=== PATIENT | female | born 1950 | race Caucasian/White ===

== ENCOUNTER 2017-08-16 09:55 | Inpatient (IN) ==
[2017-08-16 14:04] LABS: Basophils # 0.1 10*3/uL (0.0-0.2); Basophils % 0.8 % (0.0-0.8); Eosinophils # 0.1 10*3/uL (0.0-0.87); Eosinophils % 0.9 % (0.00-10.9); Hematocrit 39.4 VOL% (35.7-47.0); Hemoglobin 12.6 GM/DL (12.0-16.0); Immature Granulocytes % 0.7 %; Immature Granulocytes Absolute 0.09 #; Lymphocytes # 1.1 10*3/uL (1.4-4.0); Lymphocytes % 8.5 % (21.3-54.2); Mean Corpuscular Hemoglobin 28 PG (27-34); Mean Corpuscular Volume 86.4 FL (87-102); Mean Platelet Volume 11.4 FL (9.6-12.0); Monocytes # 1.3 10*3/uL (0.11-0.8); Monocytes % 9.6 % (1.7-12.7); Neutrophils # 10.6 10*3/uL (1.4-7.4); Neutrophils % 79.5 % (38.7-73.9); Platelet Count 337 T/CUMM (130-400); Red Blood Count 4.56 MC/CUMM (3.8-5.5); Red Cell Distribution Width 14.7 % (9.3-17.3); White Blood Count 13.4 T/CUMM (4-12)
[2017-08-16 15:41] LABS: INR 2.1
[2017-08-16 15:42] LABS: PT Patient Result 21.5 SECS
[2017-08-16 16:17] LABS: Albumin 3.7 G/DL (3.4-5.0); Bilirubin,Total 0.6 MG/DL (0.2-1.0); Calcium 8.8 MG/DL (8.5-10.1); Osmolality,Calculated 277.4 MOS/KG (273-304); Potassium 4.2 MMOL/L (3.5-5.1); Total Protein 6.9 G/DL (6.4-8.3)
[2017-08-16] MEDS ORDERED: ACETAMINOPHEN 325 MG TABLET PO PRN (16:20)
[2017-08-16] MEDS ORDERED: ONDANSETRON 4 MG/2 ML VIAL IV PRN (16:20)
[2017-08-16] MEDS ORDERED: CLINDAMYCIN INJ 50 ML IV ONE (17:49)
[2017-08-16] MEDS: SODIUM CHLORIDE 0.9% 1,000 ML IV SCH (18:00)
[2017-08-16] MEDS: CLINDAMYCIN INJ 600 MG in PREMIX 1 EACH IV SCH (18:00)
[2017-08-16] MEDS ORDERED: WARFARIN 7.5 MG TABLET PO SCH (22:00)
[2017-08-16] MEDS ORDERED: WARFARIN 2.5 MG TABLET PO SCH (22:00)
[2017-08-17] MEDS: CLINDAMYCIN INJ 600 MG in PREMIX 1 EACH IV SCH ×3 (01:03→17:08)
[2017-08-17 05:10] LABS: Basophils # 0.1 10*3/uL (0.0-0.2); Basophils % 1.2 % (0.0-0.8); Eosinophils # 0.2 10*3/uL (0.0-0.87); Eosinophils % 2.4 % (0.00-10.9); Hematocrit 36.1 VOL% (35.7-47.0); Immature Granulocytes % 0.8 %; Immature Granulocytes Absolute 0.08 #; Lymphocytes # 1.7 10*3/uL (1.4-4.0); Lymphocytes % 17.4 % (21.3-54.2); Mean Corpuscular HGB Conc 33.2 GM/DL (32-36); Mean Corpuscular Hemoglobin 28 PG (27-34); Mean Corpuscular Volume 84.1 FL (87-102); Monocytes % 10.5 % (1.7-12.7); Neutrophils # 6.7 10*3/uL (1.4-7.4); Neutrophils % 67.7 % (38.7-73.9); Platelet Count 341 T/CUMM (130-400); Red Blood Count 4.29 MC/CUMM (3.8-5.5); Red Cell Distribution Width 14.8 % (9.3-17.3); White Blood Count 9.9 T/CUMM (4-12)
[2017-08-17 05:47] LABS: Albumin 3.1 G/DL (3.4-5.0); Bilirubin,Total 0.8 MG/DL (0.2-1.0); Osmolality,Calculated 278.4 MOS/KG (273-304); Thyroid Stimulating Hormone 2.9 uIU/ml (0.358-3.74); Total Protein 6.8 G/DL (6.4-8.3)
[2017-08-17] MEDS ORDERED: LIDOCAINE 1%/EPI INJ 20 ML VIAL ONE (06:38)
[2017-08-17] MEDS ORDERED: BUPIVACAINE MPF 0.25% 30 ML VIAL ONE (06:38)
[2017-08-17] MEDS ORDERED: ONDANSETRON 4 MG/2 ML VIAL IV PRN (08:09)
[2017-08-17] MEDS: MORPHINE 10 MG/1 ML VIAL IV PRN ×2 (08:16→08:23)
[2017-08-17] MEDS: METOPROLOL SUCCINATE XL 50 MG TABLET PO SCH (09:33)
[2017-08-17] MEDS: ASPIRIN EC 81 MG TABLET PO SCH (09:33)
[2017-08-17] MEDS: PANTOPRAZOLE 40 MG TABLET PO SCH (09:33)
[2017-08-17] MEDS: CHOLECALCIFEROL 5,000 UNIT TABLET PO SCH (09:33)
[2017-08-17] MEDS: SODIUM CHLORIDE 0.9% 1,000 ML IV SCH (09:33)
[2017-08-17 10:52] LABS: INR 2.4
[2017-08-17 10:53] LABS: PT Patient Result 24.9 SECS
[2017-08-17] MEDS ORDERED: KETAMINE 500 MG/10 ML VIAL ONE (12:27)
[2017-08-17] MEDS ORDERED: PROPOFOL 200 MG/20 ML VIAL IV ONE (12:28)
[2017-08-17] MEDS ORDERED: SODIUM CHLORIDE 0.9% 250 ML IV ONE (12:29)
[2017-08-17] MEDS ORDERED: fentaNYL 100 MCG/2 ML VIAL ONE (12:29)
[2017-08-17] MEDS ORDERED: MIDAZOLAM 2 MG/2 ML VIAL ONE (12:29)
[2017-08-17] MEDS ORDERED: ONDANSETRON 4 MG/2 ML VIAL ONE (12:29)
[2017-08-17] MEDS ORDERED: SODIUM CHLORIDE 0.9% 500 ML IV ONE (13:33)
[2017-08-17] MEDS: WARFARIN 5 MG TABLET PO SCH (21:59)
[2017-08-18] MEDS: CLINDAMYCIN INJ 600 MG in PREMIX 1 EACH IV SCH ×2 (00:46→10:21)
[2017-08-18 04:56] LABS: Basophils # 0.1 10*3/uL (0.0-0.2); Basophils % 0.8 % (0.0-0.8); Eosinophils # 0.3 10*3/uL (0.0-0.87); Eosinophils % 2.7 % (0.00-10.9); Hematocrit 34.2 VOL% (35.7-47.0); Immature Granulocytes % 0.9 %; Immature Granulocytes Absolute 0.08 #; Lymphocytes # 1.5 10*3/uL (1.4-4.0); Mean Corpuscular HGB Conc 32.2 GM/DL (32-36); Mean Corpuscular Hemoglobin 27 PG (27-34); Mean Corpuscular Volume 85.3 FL (87-102); Mean Platelet Volume 11.3 FL (9.6-12.0); Monocytes % 11.1 % (1.7-12.7); Neutrophils # 6.3 10*3/uL (1.4-7.4); Neutrophils % 68.5 % (38.7-73.9); Platelet Count 300 T/CUMM (130-400); Red Blood Count 4.01 MC/CUMM (3.8-5.5); Red Cell Distribution Width 14.6 % (9.3-17.3); White Blood Count 9.2 T/CUMM (4-12)
[2017-08-18 05:22] LABS: Calcium 8.5 MG/DL (8.5-10.1); Osmolality,Calculated 274.7 MOS/KG (273-304); Potassium 4.1 MMOL/L (3.5-5.1)
[2017-08-18 05:29] LABS: INR 3.2; PT Patient Result 32.1 SECS
[2017-08-18] MEDS: ASPIRIN EC 81 MG TABLET PO SCH (10:23)
[2017-08-18] MEDS: CHOLECALCIFEROL 5,000 UNIT TABLET PO SCH (10:23)
[2017-08-18] MEDS: PANTOPRAZOLE 40 MG TABLET PO SCH (10:24)
[2017-08-18] MEDS: METOPROLOL SUCCINATE XL 50 MG TABLET PO SCH (10:24)
[2017-08-18] MEDS ORDERED: VANCOMYCIN INJ 1,500 MG in SODIUM CHLORIDE 0.9% 500 ML IV ONE (12:00)
[2017-08-18] MEDS: WARFARIN 5 MG TABLET PO SCH (18:38)
[2017-08-19] MEDS ORDERED: VANCOMYCIN INJ 1,500 MG in SODIUM CHLORIDE 0.9% 500 ML IV SCH
[2017-08-19 06:16] LABS: INR 2.6
[2017-08-19 06:17] LABS: PT Patient Result 26.2 SECS
[2017-08-19] MEDS ORDERED: LINEZOLID 600 MG TABLET PO SCH (09:00)
[2017-08-19] MEDS: PANTOPRAZOLE 40 MG TABLET PO SCH (10:59)
[2017-08-19] MEDS: ASPIRIN EC 81 MG TABLET PO SCH (11:00)
[2017-08-19] MEDS: CHOLECALCIFEROL 5,000 UNIT TABLET PO SCH (11:00)
[2017-08-19] MEDS: METOPROLOL SUCCINATE XL 50 MG TABLET PO SCH (11:00)
[2017-08-19 11:39] VITALS: BP 137/75
== END 2017-08-19 14:13 | disposition home health service (06) | DRG 603 ==
LOC: N.ED 09:55 → N.EDINP 09:55 → SUATTDRO 16:20 → N.EDINP 18:17 → N.TELES 18:30
PROVIDERS: ADMIT Hospitalist; ATTEND Internal Medicine Geriatric Medicine

== ENCOUNTER 2018-12-28 08:10 | Inpatient (IN) ==
[2018-12-28] MEDS ORDERED: MAGNESIUM SULF RIDER 4 GM in PREMIX 1 EACH IV PRN (09:02)
[2018-12-28] MEDS ORDERED: ONDANSETRON 4 MG/2 ML VIAL IV PRN (09:02)
[2018-12-28] MEDS ORDERED: ACETAMINOPHEN 325 MG TABLET PO PRN (09:02)
[2018-12-28] MEDS ORDERED: MAGNESIUM SULF RIDER 2 GM in PREMIX 1 EACH IV PRN (09:02)
[2018-12-28] MEDS ORDERED: DOCUSATE SODIUM 100 MG CAPSULE PO PRN (09:02)
[2018-12-28] MEDS ORDERED: ZALEPLON 5 MG CAPSULE PO PRN (09:02)
[2018-12-28] MEDS ORDERED: INFLUENZA VIRUS VACCINE 0.5 ML SYRINGE IM ONE (10:16)
[2018-12-28 10:28] LABS: Basophils # 0.1 10*3/uL (0.0-0.2); Basophils % 1.3 % (0.0-0.8); Eosinophils # 0.2 10*3/uL (0.0-0.87); Eosinophils % 1.8 % (0.00-10.9); Hematocrit 39.6 VOL% (35.7-47.0); Hemoglobin 12.3 GM/DL (12.0-16.0); Immature Granulocytes % 1.3 %; Immature Granulocytes Absolute 0.11 #; Lymphocytes # 1.5 10*3/uL (1.4-4.0); Lymphocytes % 17.5 % (21.3-54.2); Mean Corpuscular HGB Conc 31.1 GM/DL (32-36); Mean Corpuscular Volume 85.7 FL (87-102); Mean Platelet Volume 11.4 FL (9.6-12.0); Monocytes % 10.3 % (1.7-12.7); Neutrophils % 67.8 % (38.7-73.9); Platelet Count 330 T/CUMM (130-400); Red Blood Count 4.62 MC/CUMM (3.8-5.5); Red Cell Distribution Width 15.5 % (9.3-17.3); White Blood Count 8.5 T/CUMM (4-12)
[2018-12-28 10:45] LABS: PT Patient Result 10.7 SECS (9.6-12.2)
[2018-12-28 10:48] LABS: Albumin 3.5 G/DL (3.4-5.0); Bilirubin,Total 0.4 MG/DL (0.2-1.0); Osmolality,Calculated 276.5 MOS/KG (273-304); Total Protein 7.3 G/DL (6.4-8.3)
[2018-12-28] MEDS ORDERED: HEPARIN 5,000 UNIT/1 ML VIAL IV ONE (11:00)
[2018-12-28] MEDS ORDERED: HEPARIN DRIP 25,000 UNITS/500 ML PREMIX IV SCH (11:00)
[2018-12-28] MEDS: PANTOPRAZOLE 40 MG TABLET PO SCH (11:14)
[2018-12-28] MEDS ORDERED: MAGNESIUM HYDROXIDE SUSP 30 ML UDCUP PO PRN (15:43)
[2018-12-28] MEDS ORDERED: diphenhydrAMINE CAP 25 MG CAPSULE PO PRN (15:43)
[2018-12-28] MEDS: LINEZOLID 600 MG TABLET PO SCH (22:11)
[2018-12-29 05:21] LABS: Basophils # 0.1 10*3/uL (0.0-0.2); Basophils % 1.6 % (0.0-0.8); Eosinophils # 0.2 10*3/uL (0.0-0.87); Eosinophils % 2.5 % (0.00-10.9); Hematocrit 38.6 VOL% (35.7-47.0); Hemoglobin 12.1 GM/DL (12.0-16.0); Immature Granulocytes % 1.4 %; Immature Granulocytes Absolute 0.12 #; Lymphocytes # 2.1 10*3/uL (1.4-4.0); Lymphocytes % 24.7 % (21.3-54.2); Mean Corpuscular HGB Conc 31.3 GM/DL (32-36); Mean Corpuscular Volume 85.8 FL (87-102); Mean Platelet Volume 11.8 FL (9.6-12.0); Neutrophils % 58.8 % (38.7-73.9); Platelet Count 289 T/CUMM (130-400); Red Cell Distribution Width 15.4 % (9.3-17.3); White Blood Count 8.3 T/CUMM (4-12)
[2018-12-29 05:31] LABS: Calcium 9.5 MG/DL (8.5-10.1); Osmolality,Calculated 287.8 MOS/KG (273-304)
[2018-12-29] MEDS ORDERED: LIDOCAINE 1%/EPI INJ 20 ML VIAL ONE (07:32)
[2018-12-29] MEDS ORDERED: AMOXICILLIN 500 MG CAPSULE ONE (08:47)
[2018-12-29] MEDS: LINEZOLID 600 MG TABLET PO SCH (11:58)
[2018-12-29] MEDS: ASPIRIN EC 81 MG TABLET PO SCH (11:59)
[2018-12-29] MEDS: METOPROLOL SUCCINATE XL 25 MG TABLET PO SCH (11:59)
[2018-12-29] MEDS: CHOLECALCIFEROL 5,000 UNIT TABLET PO SCH (11:59)
[2018-12-29] MEDS: PANTOPRAZOLE 40 MG TABLET PO SCH (11:59)
[2018-12-29] MEDS ORDERED: INFLUENZA VIRUS VACCINE 0.5 ML SYRINGE IM ONE (12:25)
[2018-12-29] MEDS: HEPARIN DRIP 25,000 UNITS/500 ML PREMIX IV SCH (13:46)
[2018-12-29] MEDS ORDERED: HEPARIN 5,000 UNIT/1 ML VIAL IV ONE (17:07)
[2018-12-29] MEDS: WARFARIN 7.5 MG TABLET PO SCH (17:45)
[2018-12-30 04:35] LABS: Basophils # 0.1 10*3/uL (0.0-0.2); Basophils % 1.3 % (0.0-0.8); Eosinophils # 0.2 10*3/uL (0.0-0.87); Eosinophils % 2.2 % (0.00-10.9); Hemoglobin 12.3 GM/DL (12.0-16.0); Immature Granulocytes % 1.5 %; Immature Granulocytes Absolute 0.12 #; Lymphocytes % 24.6 % (21.3-54.2); Mean Corpuscular HGB Conc 30.8 GM/DL (32-36); Mean Corpuscular Volume 87.5 FL (87-102); Mean Platelet Volume 11.7 FL (9.6-12.0); Monocytes % 10.3 % (1.7-12.7); Neutrophils % 60.1 % (38.7-73.9); Platelet Count 302 T/CUMM (130-400); Red Blood Count 4.57 MC/CUMM (3.8-5.5); Red Cell Distribution Width 15.7 % (9.3-17.3); White Blood Count 8.3 T/CUMM (4-12)
[2018-12-30 04:48] LABS: PT Patient Result 10.8 SECS (9.6-12.2)
[2018-12-30 05:11] LABS: Osmolality,Calculated 280.4 MOS/KG (273-304)
[2018-12-30] MEDS ORDERED: WARFARIN 5 MG TABLET PO ONE (07:57)
[2018-12-30] MEDS: ASPIRIN EC 81 MG TABLET PO SCH (08:23)
[2018-12-30] MEDS: METOPROLOL SUCCINATE XL 25 MG TABLET PO SCH (08:23)
[2018-12-30] MEDS: PANTOPRAZOLE 40 MG TABLET PO SCH (08:23)
[2018-12-30] MEDS: CHOLECALCIFEROL 5,000 UNIT TABLET PO SCH (08:23)
[2018-12-30] MEDS: HEPARIN DRIP 25,000 UNITS/500 ML PREMIX IV SCH (08:24)
[2018-12-30] MEDS: WARFARIN 7.5 MG TABLET PO SCH (17:59)
[2018-12-31] MEDS: HEPARIN DRIP 25,000 UNITS/500 ML PREMIX IV SCH (02:21)
[2018-12-31 05:09] LABS: Basophils # 0.1 10*3/uL (0.0-0.2); Basophils % 1.5 % (0.0-0.8); Eosinophils # 0.2 10*3/uL (0.0-0.87); Eosinophils % 2.6 % (0.00-10.9); Hematocrit 38.1 VOL% (35.7-47.0); Hemoglobin 11.7 GM/DL (12.0-16.0); Immature Granulocytes % 1.5 %; Immature Granulocytes Absolute 0.11 #; Lymphocytes % 26.2 % (21.3-54.2); Mean Corpuscular HGB Conc 30.7 GM/DL (32-36); Mean Corpuscular Volume 85.8 FL (87-102); Monocytes % 10.3 % (1.7-12.7); Neutrophils % 57.9 % (38.7-73.9); Platelet Count 285 T/CUMM (130-400); Red Blood Count 4.44 MC/CUMM (3.8-5.5); Red Cell Distribution Width 15.6 % (9.3-17.3); White Blood Count 7.5 T/CUMM (4-12)
[2018-12-31 05:11] LABS: INR 1.2; PT Patient Result 13.4 SECS (9.6-12.2)
[2018-12-31 05:37] LABS: Calcium 9.4 MG/DL (8.5-10.1); Osmolality,Calculated 288.7 MOS/KG (273-304)
[2018-12-31] MEDS ORDERED: WARFARIN 5 MG TABLET PO ONE (07:38)
[2018-12-31] MEDS ORDERED: METHOCARBAMOL 750 MG TABLET PO PRN (07:41)
[2018-12-31] MEDS: ASPIRIN EC 81 MG TABLET PO SCH (09:28)
[2018-12-31] MEDS: CHOLECALCIFEROL 5,000 UNIT TABLET PO SCH (09:28)
[2018-12-31] MEDS: PANTOPRAZOLE 40 MG TABLET PO SCH (09:28)
[2018-12-31] MEDS: METOPROLOL SUCCINATE XL 25 MG TABLET PO SCH (09:28)
[2018-12-31] MEDS: WARFARIN 7.5 MG TABLET PO SCH (18:02)
[2019-01-01] MEDS: HEPARIN DRIP 25,000 UNITS/500 ML PREMIX IV SCH ×2 (02:21→14:01)
[2019-01-01 05:58] LABS: Basophils # 0.1 10*3/uL (0.0-0.2); Basophils % 1.2 % (0.0-0.8); Eosinophils # 0.2 10*3/uL (0.0-0.87); Eosinophils % 2.4 % (0.00-10.9); Hematocrit 39.4 VOL% (35.7-47.0); Hemoglobin 12.2 GM/DL (12.0-16.0); Immature Granulocytes % 1.5 %; Immature Granulocytes Absolute 0.11 #; Lymphocytes % 26.8 % (21.3-54.2); Mean Corpuscular Volume 85.7 FL (87-102); Monocytes % 10.7 % (1.7-12.7); Neutrophils % 57.4 % (38.7-73.9); Platelet Count 286 T/CUMM (130-400); Red Cell Distribution Width 15.6 % (9.3-17.3); White Blood Count 7.5 T/CUMM (4-12)
[2019-01-01 06:06] LABS: INR 1.8; PT Patient Result 19.2 SECS (9.6-12.2)
[2019-01-01 06:31] LABS: Osmolality,Calculated 279.4 MOS/KG (273-304)
[2019-01-01] MEDS: METOPROLOL SUCCINATE XL 25 MG TABLET PO SCH (10:09)
[2019-01-01] MEDS: PANTOPRAZOLE 40 MG TABLET PO SCH (10:09)
[2019-01-01] MEDS: CHOLECALCIFEROL 5,000 UNIT TABLET PO SCH (10:10)
[2019-01-01] MEDS: ASPIRIN EC 81 MG TABLET PO SCH (10:10)
[2019-01-01] MEDS ORDERED: WARFARIN 5 MG TABLET PO SCH (18:00)
[2019-01-02] MEDS: HEPARIN DRIP 25,000 UNITS/500 ML PREMIX IV SCH (05:10)
[2019-01-02 05:50] LABS: Basophils # 0.1 10*3/uL (0.0-0.2); Basophils % 1.3 % (0.0-0.8); Eosinophils # 0.2 10*3/uL (0.0-0.87); Eosinophils % 2.8 % (0.00-10.9); Hematocrit 37.3 VOL% (35.7-47.0); Hemoglobin 11.7 GM/DL (12.0-16.0); Immature Granulocytes % 1.7 %; Immature Granulocytes Absolute 0.12 #; Lymphocytes # 1.7 10*3/uL (1.4-4.0); Lymphocytes % 24.2 % (21.3-54.2); Mean Corpuscular HGB Conc 31.4 GM/DL (32-36); Mean Corpuscular Volume 86.1 FL (87-102); Mean Platelet Volume 11.9 FL (9.6-12.0); Platelet Count 273 T/CUMM (130-400); Red Blood Count 4.33 MC/CUMM (3.8-5.5); Red Cell Distribution Width 15.6 % (9.3-17.3); White Blood Count 7.2 T/CUMM (4-12)
[2019-01-02 06:04] LABS: Calcium 9.1 MG/DL (8.5-10.1); Osmolality,Calculated 282.3 MOS/KG (273-304)
[2019-01-02 07:29] LABS: PT Patient Result 22.1 SECS (9.6-12.2)
[2019-01-02] MEDS: METOPROLOL SUCCINATE XL 25 MG TABLET PO SCH (08:08)
[2019-01-02] MEDS: PANTOPRAZOLE 40 MG TABLET PO SCH (08:09)
[2019-01-02] MEDS: ASPIRIN EC 81 MG TABLET PO SCH (08:09)
[2019-01-02] MEDS: CHOLECALCIFEROL 5,000 UNIT TABLET PO SCH (08:09)
[2019-01-02 11:56] VITALS: BP 126/57
== END 2019-01-02 13:05 | disposition home or self-care (01) | DRG 599 ==
LOC: N.3E 09:42
PROVIDERS: ADMIT Internal Medicine Interventional Cardiology; ATTEND Internal Medicine Interventional Cardiology

== ENCOUNTER 2019-01-25 13:55 | Inpatient (IN) ==
[~2019-01-25 13:55] MED LIST: ACETAMINOPHEN 325 MG TABLET PO PRN; ALBUTEROL/IPRATROPIUM 3 ML NEB RESP TX PRN; ONDANSETRON 4 MG/2 ML VIAL IV PRN
[2019-01-29] MEDS ORDERED: INFLUENZA VIRUS VACCINE 0.5 ML SYRINGE IM ONE (10:31)
[2019-01-29 10:45] LABS: Basophils # 0.1 10*3/uL (0.0-0.2); Basophils % 1.5 % (0.0-0.8); Eosinophils # 0.1 10*3/uL (0.0-0.87); Eosinophils % 1.7 % (0.00-10.9); Hematocrit 37.9 VOL% (35.7-47.0); Hemoglobin 11.9 GM/DL (12.0-16.0); Immature Granulocytes % 0.6 %; Immature Granulocytes Absolute 0.05 #; Lymphocytes # 1.5 10*3/uL (1.4-4.0); Lymphocytes % 17.7 % (21.3-54.2); Mean Corpuscular HGB Conc 31.4 GM/DL (32-36); Mean Platelet Volume 11.7 FL (9.6-12.0); Monocytes % 7.9 % (1.7-12.7); Neutrophils % 70.6 % (38.7-73.9); Platelet Count 361 T/CUMM (130-400); Red Blood Count 4.46 MC/CUMM (3.8-5.5); Red Cell Distribution Width 15.4 % (9.3-17.3); White Blood Count 8.4 T/CUMM (4-12)
[2019-01-29 10:55] LABS: INR 1.8; PT Patient Result 19.7 SECS (9.6-12.2); Partial Thromboplastin Time 35.8 SECS (20.8-36.0)
[2019-01-29] MEDS: PANTOPRAZOLE 40 MG TABLET PO SCH ×4 (11:01→11:37)
[2019-01-29 11:04] LABS: Apearance,Urine CLEAR (Clear); Bacteria,Urine Occasional /HPF (Few); Bilirubin,Urine Negative (Negative); Blood, Urine Small mg/dL (Negative); Glucose,Urine (UA) Negative (Negative); Ketones,Urine Negative (Negative); Nitrite,Urine Negative (Negative); Protein,Urine Negative; Squamous Epithelial Cell,Urine Occasional /HPF (0-10); Urine Color Colorless (Yellow); Urine Specific Gravity 1.003 (1.001-1.035); Urine Urobilinogen < 2.0 EU/DL (0.2-1.0); WBC,Urine 1 /HPF (0-6)
[2019-01-29 11:06] LABS: Albumin 3.5 G/DL (3.4-5.0); Calcium 9.1 MG/DL (8.5-10.1); Osmolality,Calculated 279.7 MOS/KG (273-304); Total Protein 7.2 G/DL (6.4-8.3)
[2019-01-29] MEDS: HEPARIN DRIP 25,000 UNITS/500 ML PREMIX IV SCH (12:15)
[2019-01-29 18:17] LABS: INR 1.6; PT Patient Result 17.6 SECS (9.6-12.2)
[2019-01-29] MEDS: CALCIUM (CARBONATE)/VITAMIN D 500 MG-200 UNIT TABLET PO SCH (20:37)
[2019-01-30 06:03] LABS: INR 1.4; PT Patient Result 15.2 SECS (9.6-12.2)
[2019-01-30] MEDS: CHOLECALCIFEROL 5,000 UNIT TABLET PO SCH (09:34)
[2019-01-30] MEDS: METOPROLOL SUCCINATE XL 50 MG TABLET PO SCH (09:35)
[2019-01-30] MEDS: ASPIRIN EC 81 MG TABLET PO SCH (09:35)
[2019-01-30] MEDS: CALCIUM (CARBONATE)/VITAMIN D 500 MG-200 UNIT TABLET PO SCH ×2 (09:35→20:53)
[2019-01-30] MEDS: PANTOPRAZOLE 40 MG TABLET PO SCH (09:35)
[2019-01-30] MEDS: HEPARIN DRIP 25,000 UNITS/500 ML PREMIX IV SCH (12:07)
[2019-01-31 05:41] LABS: INR 1.2; PT Patient Result 12.6 SECS (9.6-12.2)
[2019-01-31] MEDS: HEPARIN DRIP 25,000 UNITS/500 ML PREMIX IV SCH ×2 (06:09→13:33)
[2019-01-31] MEDS: CHOLECALCIFEROL 5,000 UNIT TABLET PO SCH (08:09)
[2019-01-31] MEDS: ASPIRIN EC 81 MG TABLET PO SCH (08:09)
[2019-01-31] MEDS: PANTOPRAZOLE 40 MG TABLET PO SCH (08:09)
[2019-01-31] MEDS: CALCIUM (CARBONATE)/VITAMIN D 500 MG-200 UNIT TABLET PO SCH ×2 (08:09→21:10)
[2019-01-31] MEDS: METOPROLOL SUCCINATE XL 50 MG TABLET PO SCH (08:10)
[2019-02-01] MEDS: HEPARIN DRIP 25,000 UNITS/500 ML PREMIX IV SCH (02:39)
[2019-02-01 05:21] LABS: PT Patient Result 10.9 SECS (9.6-12.2)
[2019-02-01] MEDS ORDERED: HEPARIN DRIP 25,000 UNITS/500 ML PREMIX IV SCH (08:00)
[2019-02-01] MEDS: CHOLECALCIFEROL 5,000 UNIT TABLET PO SCH (08:41)
[2019-02-01] MEDS: PANTOPRAZOLE 40 MG TABLET PO SCH (08:42)
[2019-02-01] MEDS: ASPIRIN EC 81 MG TABLET PO SCH (08:42)
[2019-02-01] MEDS: CALCIUM (CARBONATE)/VITAMIN D 500 MG-200 UNIT TABLET PO SCH ×2 (08:42→20:39)
[2019-02-01] MEDS: METOPROLOL SUCCINATE XL 50 MG TABLET PO SCH (08:47)
[2019-02-01] MEDS: HEPARIN 5,000 UNIT/1 ML VIAL IV PRN (12:08)
[2019-02-02] MEDS ORDERED: FAMOTIDINE 20 MG TABLET PO ONE (06:00)
[2019-02-02] MEDS ORDERED: DIAZEPAM 5 MG TABLET PO ONE (06:00)
[2019-02-02 10:10] LABS: INR 0.9; PT Patient Result 10.3 SECS (9.6-12.2); Partial Thromboplastin Time 26.4 SECS (20.8-36.0)
[2019-02-02] MEDS: METOPROLOL SUCCINATE XL 50 MG TABLET PO SCH (10:10)
[2019-02-02] MEDS: LACTATED RINGERS 1,000 ML IV SCH ×2 (10:42→14:09)
[2019-02-02] MEDS ORDERED: ceFAZolin 1,000 MG VIAL ONE (12:14)
[2019-02-02] MEDS ORDERED: HYDROmorphone 2 MG/1 ML VIAL IV PRN (13:23)
[2019-02-02] MEDS ORDERED: HYDROmorphone 2 MG/1 ML VIAL ONE (14:01)
[2019-02-02] MEDS ORDERED: ONDANSETRON 4 MG/2 ML VIAL ONE (14:01)
[2019-02-02] MEDS ORDERED: ONDANSETRON 4 MG/2 ML VIAL IV PRN (14:02)
[2019-02-02] MEDS: HYDROmorphone 2 MG/1 ML VIAL IV PRN ×4 (14:05→14:20)
[2019-02-02] MEDS: PANTOPRAZOLE 40 MG TABLET PO SCH (15:32)
[2019-02-02] MEDS: KETOROLAC 15 MG/1 ML VIAL IV SCH ×2 (15:32→22:01)
[2019-02-02] MEDS: CALCIUM (CARBONATE)/VITAMIN D 500 MG-200 UNIT TABLET PO SCH ×2 (15:32→21:58)
[2019-02-02] MEDS: ASPIRIN EC 81 MG TABLET PO SCH (15:32)
[2019-02-02] MEDS: CHOLECALCIFEROL 5,000 UNIT TABLET PO SCH (15:32)
[2019-02-02] MEDS: WARFARIN 7.5 MG TABLET PO SCH (18:02)
[2019-02-02] MEDS: HEPARIN DRIP 25,000 UNITS/500 ML PREMIX IV SCH (18:12)
[2019-02-03] MEDS: KETOROLAC 15 MG/1 ML VIAL IV SCH ×4 (01:39→20:35)
[2019-02-03 02:45] LABS: Apearance,Urine Slightly Hazy (Clear); Bacteria,Urine Many /HPF (Few); Bilirubin,Urine Negative (Negative); Blood, Urine Large mg/dL (Negative); Glucose,Urine (UA) Negative (Negative); Hyaline Casts,Urine 7 /LPF (0-3); Ketones,Urine Negative (Negative); Mucus,Urine Many /LPF (Occasional); Nitrite,Urine Negative (Negative); Protein,Urine 30 MG/DL; RBC,Urine 73 /HPF (0-4); Squamous Epithelial Cell,Urine Occasional /HPF (0-10); Urine Color BLUE (Yellow); Urine Urobilinogen < 2.0 EU/DL (0.2-1.0); WBC,Urine 6 /HPF (0-6)
[2019-02-03 06:40] LABS: Basophils # 0.1 10*3/uL (0.0-0.2); Basophils % 0.5 % (0.0-0.8); Eosinophils % 0.1 % (0.00-10.9); Hematocrit 33.8 VOL% (35.7-47.0); Hemoglobin 10.4 GM/DL (12.0-16.0); Immature Granulocytes % 0.9 %; Immature Granulocytes Absolute 0.16 #; Lymphocytes # 1.5 10*3/uL (1.4-4.0); Lymphocytes % 8.5 % (21.3-54.2); Mean Corpuscular HGB Conc 30.8 GM/DL (32-36); Mean Corpuscular Volume 86.2 FL (87-102); Mean Platelet Volume 12.2 FL (9.6-12.0); Monocytes % 9.3 % (1.7-12.7); Neutrophils % 80.7 % (38.7-73.9); Platelet Count 369 T/CUMM (130-400); Red Blood Count 3.92 MC/CUMM (3.8-5.5); Red Cell Distribution Width 15.5 % (9.3-17.3); White Blood Count 18.1 T/CUMM (4-12)
[2019-02-03] MEDS ORDERED: CLINDAMYCIN INJ 900 MG in PREMIX 1 EACH IV ONE (07:23)
[2019-02-03] MEDS: METOPROLOL SUCCINATE XL 50 MG TABLET PO SCH (08:02)
[2019-02-03] MEDS ORDERED: LACTATED RINGERS 1,000 ML IV SCH (10:00)
[2019-02-03] MEDS ORDERED: LIDOCAINE 2% 5 ML VIAL ONE (10:27)
[2019-02-03] MEDS ORDERED: PROPOFOL 200 MG/20 ML VIAL IV ONE (10:27)
[2019-02-03] MEDS ORDERED: fentaNYL 100 MCG/2 ML VIAL ONE (10:27)
[2019-02-03] MEDS ORDERED: SEVOFLURANE 1 UNIT/15 MINUTE INH ONE (10:27)
[2019-02-03] MEDS ORDERED: PHENYLEPHRINE 1 MG/10 ML SYRINGE IV ONE (10:28)
[2019-02-03] MEDS ORDERED: ONDANSETRON 4 MG/2 ML VIAL ONE (10:28)
[2019-02-03] MEDS ORDERED: MIDAZOLAM 2 MG/2 ML VIAL ONE (10:28)
[2019-02-03] MEDS ORDERED: SUCCINYLCHOLINE 200 MG/10 ML VIAL ONE (10:28)
[2019-02-03] MEDS: CALCIUM (CARBONATE)/VITAMIN D 500 MG-200 UNIT TABLET PO SCH ×2 (14:40→20:35)
[2019-02-03] MEDS: CHOLECALCIFEROL 5,000 UNIT TABLET PO SCH (14:40)
[2019-02-03] MEDS: ASPIRIN EC 81 MG TABLET PO SCH (14:40)
[2019-02-03] MEDS: PANTOPRAZOLE 40 MG TABLET PO SCH (14:40)
[2019-02-03] MEDS: HEPARIN DRIP 25,000 UNITS/500 ML PREMIX IV SCH ×2 (16:23→23:27)
[2019-02-03] MEDS: WARFARIN 7.5 MG TABLET PO SCH (17:21)
[2019-02-03] MEDS ORDERED: HEPARIN 5,000 UNIT/1 ML VIAL IV ONE (23:00)
[2019-02-03] MEDS: HEPARIN 5,000 UNIT/1 ML VIAL IV PRN (23:26)
[2019-02-04] MEDS: KETOROLAC 15 MG/1 ML VIAL IV SCH ×4 (03:39→21:29)
[2019-02-04 03:54] LABS: Basophils # 0.1 10*3/uL (0.0-0.2); Basophils % 1.1 % (0.0-0.8); Eosinophils # 0.2 10*3/uL (0.0-0.87); Eosinophils % 1.9 % (0.00-10.9); Hematocrit 28.3 VOL% (35.7-47.0); Hemoglobin 8.6 GM/DL (12.0-16.0); Immature Granulocytes Absolute 0.22 #; Lymphocytes # 2.3 10*3/uL (1.4-4.0); Lymphocytes % 20.7 % (21.3-54.2); Mean Corpuscular HGB Conc 30.4 GM/DL (32-36); Mean Corpuscular Volume 85.8 FL (87-102); Mean Platelet Volume 12.5 FL (9.6-12.0); Monocytes % 10.4 % (1.7-12.7); Neutrophils % 63.9 % (38.7-73.9); Platelet Count 290 T/CUMM (130-400); Red Cell Distribution Width 15.2 % (9.3-17.3); White Blood Count 10.9 T/CUMM (4-12)
[2019-02-04 04:15] LABS: Calcium 8.4 MG/DL (8.5-10.1); Osmolality,Calculated 270.4 MOS/KG (273-304)
[2019-02-04] MEDS: METOPROLOL SUCCINATE XL 50 MG TABLET PO SCH (08:42)
[2019-02-04] MEDS: ASPIRIN EC 81 MG TABLET PO SCH (08:43)
[2019-02-04] MEDS: CHOLECALCIFEROL 5,000 UNIT TABLET PO SCH (08:43)
[2019-02-04] MEDS: PANTOPRAZOLE 40 MG TABLET PO SCH (08:43)
[2019-02-04] MEDS: CALCIUM (CARBONATE)/VITAMIN D 500 MG-200 UNIT TABLET PO SCH ×2 (08:43→21:29)
[2019-02-04] MEDS: WARFARIN 10 MG TABLET PO SCH (18:42)
[2019-02-04] MEDS: HEPARIN DRIP 25,000 UNITS/500 ML PREMIX IV SCH (18:42)
[2019-02-05] MEDS: HEPARIN DRIP 25,000 UNITS/500 ML PREMIX IV SCH ×2 (03:08→19:00)
[2019-02-05] MEDS: KETOROLAC 15 MG/1 ML VIAL IV SCH ×4 (05:07→22:07)
[2019-02-05 06:19] LABS: Basophils # 0.1 10*3/uL (0.0-0.2); Eosinophils # 0.3 10*3/uL (0.0-0.87); Eosinophils % 3.3 % (0.00-10.9); Hemoglobin 8.5 GM/DL (12.0-16.0); Immature Granulocytes % 3.5 %; Immature Granulocytes Absolute 0.32 #; Lymphocytes # 1.9 10*3/uL (1.4-4.0); Lymphocytes % 20.7 % (21.3-54.2); Mean Corpuscular HGB Conc 31.5 GM/DL (32-36); Mean Corpuscular Volume 85.4 FL (87-102); Mean Platelet Volume 12.3 FL (9.6-12.0); Monocytes % 10.2 % (1.7-12.7); Neutrophils % 61.3 % (38.7-73.9); Platelet Count 300 T/CUMM (130-400); Red Blood Count 3.16 MC/CUMM (3.8-5.5); Red Cell Distribution Width 15.1 % (9.3-17.3); White Blood Count 9.3 T/CUMM (4-12)
[2019-02-05 06:28] LABS: PT Patient Result 10.9 SECS (9.6-12.2)
[2019-02-05] MEDS: ASPIRIN EC 81 MG TABLET PO SCH (10:37)
[2019-02-05] MEDS: CHOLECALCIFEROL 5,000 UNIT TABLET PO SCH (10:37)
[2019-02-05] MEDS: PANTOPRAZOLE 40 MG TABLET PO SCH (10:38)
[2019-02-05] MEDS: CALCIUM (CARBONATE)/VITAMIN D 500 MG-200 UNIT TABLET PO SCH ×2 (10:38→22:07)
[2019-02-05] MEDS: METOPROLOL SUCCINATE XL 50 MG TABLET PO SCH (10:38)
[2019-02-05] MEDS: WARFARIN 10 MG TABLET PO SCH (18:20)
[2019-02-06] MEDS: KETOROLAC 15 MG/1 ML VIAL IV SCH ×4 (04:23→21:12)
[2019-02-06] MEDS: HEPARIN DRIP 25,000 UNITS/500 ML PREMIX IV SCH ×2 (07:29→18:04)
[2019-02-06 07:59] LABS: INR 1.2; PT Patient Result 12.7 SECS (9.6-12.2)
[2019-02-06] MEDS: METOPROLOL SUCCINATE XL 50 MG TABLET PO SCH (09:32)
[2019-02-06] MEDS: CHOLECALCIFEROL 5,000 UNIT TABLET PO SCH (09:32)
[2019-02-06] MEDS: ASPIRIN EC 81 MG TABLET PO SCH (09:32)
[2019-02-06] MEDS: CALCIUM (CARBONATE)/VITAMIN D 500 MG-200 UNIT TABLET PO SCH ×2 (09:32→21:12)
[2019-02-06] MEDS: PANTOPRAZOLE 40 MG TABLET PO SCH (09:32)
[2019-02-06] MEDS: WARFARIN 10 MG TABLET PO SCH (18:14)
[2019-02-07] MEDS: KETOROLAC 15 MG/1 ML VIAL IV SCH ×2 (03:52→10:07)
[2019-02-07 06:07] LABS: Basophils # 0.1 10*3/uL (0.0-0.2); Basophils % 0.7 % (0.0-0.8); Eosinophils # 0.9 10*3/uL (0.0-0.87); Eosinophils % 7.3 % (0.00-10.9); Hematocrit 25.9 VOL% (35.7-47.0); Immature Granulocytes % 4.4 %; Immature Granulocytes Absolute 0.51 #; Lymphocytes # 2.4 10*3/uL (1.4-4.0); Lymphocytes % 20.8 % (21.3-54.2); Mean Corpuscular HGB Conc 30.9 GM/DL (32-36); Mean Corpuscular Volume 85.5 FL (87-102); Mean Platelet Volume 12.5 FL (9.6-12.0); Monocytes % 8.9 % (1.7-12.7); Neutrophils % 57.9 % (38.7-73.9); Platelet Count 302 T/CUMM (130-400); Red Blood Count 3.03 MC/CUMM (3.8-5.5); Red Cell Distribution Width 15.2 % (9.3-17.3); White Blood Count 11.6 T/CUMM (4-12)
[2019-02-07 06:11] LABS: INR 1.5
[2019-02-07 06:18] LABS: Partial Thromboplastin Time 49.5 SECS (20.8-36.0)
[2019-02-07 07:05] LABS: Band Neutrophils 1 % (0-10); Eosinophils 5 % (0-10); Hypochromasia 1+; Lymphocytes 19 % (20-55); Platelet Estimate Adequate; Segmented Neutrophils 66 % (50-85); Total Cells Counted 100
[2019-02-07] MEDS: PANTOPRAZOLE 40 MG TABLET PO SCH (08:39)
[2019-02-07] MEDS: METOPROLOL SUCCINATE XL 50 MG TABLET PO SCH (08:39)
[2019-02-07] MEDS: ASPIRIN EC 81 MG TABLET PO SCH (08:40)
[2019-02-07] MEDS: CALCIUM (CARBONATE)/VITAMIN D 500 MG-200 UNIT TABLET PO SCH ×2 (08:45→21:46)
[2019-02-07] MEDS: CHOLECALCIFEROL 5,000 UNIT TABLET PO SCH (08:46)
[2019-02-07] MEDS: HEPARIN DRIP 25,000 UNITS/500 ML PREMIX IV SCH ×2 (09:31→18:14)
[2019-02-07] MEDS: WARFARIN 7.5 MG TABLET PO SCH (17:19)
[2019-02-08 05:42] LABS: Basophils # 0.1 10*3/uL (0.0-0.2); Eosinophils # 0.9 10*3/uL (0.0-0.87); Eosinophils % 7.7 % (0.00-10.9); Hematocrit 27.1 VOL% (35.7-47.0); Hemoglobin 8.4 GM/DL (12.0-16.0); Immature Granulocytes % 4.7 %; Immature Granulocytes Absolute 0.54 #; Lymphocytes # 2.6 10*3/uL (1.4-4.0); Lymphocytes % 22.2 % (21.3-54.2); Mean Corpuscular Volume 85.5 FL (87-102); Mean Platelet Volume 12.5 FL (9.6-12.0); Monocytes % 8.1 % (1.7-12.7); Neutrophils % 56.3 % (38.7-73.9); Platelet Count 350 T/CUMM (130-400); Red Blood Count 3.17 MC/CUMM (3.8-5.5); Red Cell Distribution Width 15.5 % (9.3-17.3); White Blood Count 11.6 T/CUMM (4-12)
[2019-02-08 05:44] LABS: INR 1.6; PT Patient Result 17.4 SECS (9.6-12.2)
[2019-02-08 06:04] LABS: Calcium 8.9 MG/DL (8.5-10.1); Osmolality,Calculated 277.5 MOS/KG (273-304)
[2019-02-08 06:12] LABS: Eosinophils 4 % (0-10); Hypochromasia 1+; Lymphocytes 20 % (20-55); Microcytosis 1+; Platelet Estimate Normal; Polychromasia Few; Segmented Neutrophils 73 % (50-85); Total Cells Counted 100
[2019-02-08] MEDS ORDERED: WARFARIN 5 MG TABLET PO ONE (09:33)
[2019-02-08] MEDS: PANTOPRAZOLE 40 MG TABLET PO SCH (10:14)
[2019-02-08] MEDS: CALCIUM (CARBONATE)/VITAMIN D 500 MG-200 UNIT TABLET PO SCH ×2 (10:15→21:17)
[2019-02-08] MEDS: ASPIRIN EC 81 MG TABLET PO SCH (10:15)
[2019-02-08] MEDS: METOPROLOL SUCCINATE XL 50 MG TABLET PO SCH (10:15)
[2019-02-08] MEDS: CHOLECALCIFEROL 5,000 UNIT TABLET PO SCH (10:15)
[2019-02-08] MEDS: HEPARIN DRIP 25,000 UNITS/500 ML PREMIX IV SCH ×2 (10:52→18:48)
[2019-02-08] MEDS: WARFARIN 7.5 MG TABLET PO SCH (18:46)
[2019-02-09 03:37] LABS: Calcium 8.8 MG/DL (8.5-10.1); Osmolality,Calculated 278.5 MOS/KG (273-304)
[2019-02-09 03:43] LABS: Basophils # 0.1 10*3/uL (0.0-0.2); Basophils % 0.8 % (0.0-0.8); Eosinophils % 7.7 % (0.00-10.9); Hematocrit 27.3 VOL% (35.7-47.0); Hemoglobin 8.5 GM/DL (12.0-16.0); Immature Granulocytes % 4.2 %; Immature Granulocytes Absolute 0.54 #; Lymphocytes # 3.1 10*3/uL (1.4-4.0); Lymphocytes % 23.5 % (21.3-54.2); Mean Corpuscular HGB Conc 31.1 GM/DL (32-36); Monocytes % 8.1 % (1.7-12.7); Neutrophils % 55.7 % (38.7-73.9); Platelet Count 370 T/CUMM (130-400); Red Blood Count 3.21 MC/CUMM (3.8-5.5); Red Cell Distribution Width 15.3 % (9.3-17.3)
[2019-02-09 04:00] LABS: PT Patient Result 21.1 SECS (9.6-12.2)
[2019-02-09 05:01] LABS: Band Neutrophils 2 % (0-10); Eosinophils 7 % (0-10); Lymphocytes 24 % (20-55); Platelet Estimate Normal; Segmented Neutrophils 60 % (50-85); Total Cells Counted 100
[2019-02-09] MEDS: HEPARIN DRIP 25,000 UNITS/500 ML PREMIX IV SCH ×2 (08:14→08:18)
[2019-02-09] MEDS: ASPIRIN EC 81 MG TABLET PO SCH (09:23)
[2019-02-09] MEDS: CALCIUM (CARBONATE)/VITAMIN D 500 MG-200 UNIT TABLET PO SCH (09:23)
[2019-02-09] MEDS: METOPROLOL SUCCINATE XL 50 MG TABLET PO SCH (09:23)
[2019-02-09] MEDS: CHOLECALCIFEROL 5,000 UNIT TABLET PO SCH (09:26)
[2019-02-09] MEDS: PANTOPRAZOLE 40 MG TABLET PO SCH (09:26)
[2019-02-09 11:25] VITALS: BP 106/58
== END 2019-02-09 11:25 | disposition home health service (06) | DRG 580 ==
LOC: N.3E 01-29 09:43
PROVIDERS: ADMIT Surgery; ATTEND Surgery

== ENCOUNTER 2019-02-17 12:04 | Inpatient (IN) ==
[2019-02-17 14:37] LABS: Basophils # 0.2 10*3/uL (0.0-0.2); Basophils % 1.8 % (0.0-0.8); Eosinophils # 0.3 10*3/uL (0.0-0.87); Eosinophils % 2.9 % (0.00-10.9); Hematocrit 29.1 VOL% (35.7-47.0); Hemoglobin 8.8 GM/DL (12.0-16.0); Immature Granulocytes % 1.8 %; Lymphocytes # 1.7 10*3/uL (1.4-4.0); Lymphocytes % 15.3 % (21.3-54.2); Mean Corpuscular HGB Conc 30.2 GM/DL (32-36); Mean Corpuscular Volume 83.6 FL (87-102); Mean Platelet Volume 10.7 FL (9.6-12.0); Monocytes % 9.9 % (1.7-12.7); Neutrophils % 68.3 % (38.7-73.9); Platelet Count 575 T/CUMM (130-400); Red Blood Count 3.48 MC/CUMM (3.8-5.5); Red Cell Distribution Width 15.4 % (9.3-17.3); White Blood Count 11.1 T/CUMM (4-12)
[2019-02-17 14:46] LABS: INR 1.6; PT Patient Result 17.2 SECS (9.6-12.2); Partial Thromboplastin Time 30.5 SECS (20.8-36.0)
[2019-02-17 14:51] LABS: Calcium 8.5 MG/DL (8.5-10.1); Osmolality,Calculated 280.5 MOS/KG (273-304)
[2019-02-17] MEDS: WARFARIN 7.5 MG TABLET PO SCH (17:07)
[2019-02-17] MEDS: HEPARIN DRIP 25,000 UNITS/500 ML PREMIX IV SCH (17:08)
[2019-02-17] MEDS: CALCIUM (CARBONATE)/VITAMIN D 500 MG-200 UNIT TABLET PO SCH (21:26)
[2019-02-18] MEDS ORDERED: HEPARIN 5,000 UNIT/1 ML VIAL IV ONE ×2 (01:15→02:30)
[2019-02-18] MEDS ORDERED: LIDOCAINE 1%/EPI INJ 20 ML VIAL ONE (06:16)
[2019-02-18] MEDS ORDERED: BUPIVACAINE 0.5% 50 ML VIAL ONE (06:16)
[2019-02-18] MEDS ORDERED: CLINDAMYCIN INJ 50 ML IV ONE (07:24)
[2019-02-18] MEDS ORDERED: SEVOFLURANE 1 UNIT/15 MINUTE INH ONE (07:56)
[2019-02-18] MEDS ORDERED: ONDANSETRON 4 MG/2 ML VIAL ONE (07:56)
[2019-02-18] MEDS ORDERED: fentaNYL 100 MCG/2 ML VIAL ONE (07:56)
[2019-02-18] MEDS ORDERED: LIDOCAINE 2% 5 ML VIAL ONE (07:56)
[2019-02-18] MEDS ORDERED: MIDAZOLAM 2 MG/2 ML VIAL ONE (07:56)
[2019-02-18] MEDS ORDERED: PROPOFOL 200 MG/20 ML VIAL IV ONE (07:56)
[2019-02-18] MEDS ORDERED: ACETAMINOPHEN 1,000 MG/100 ML VIAL IV ONE (07:57)
[2019-02-18] MEDS ORDERED: LACTATED RINGERS 1,000 ML IV ONE (07:57)
[2019-02-18] MEDS ORDERED: PHENYLEPHRINE 1 MG/10 ML SYRINGE IV ONE (07:57)
[2019-02-18] MEDS: METOPROLOL SUCCINATE XL 50 MG TABLET PO SCH (09:35)
[2019-02-18] MEDS: CHOLECALCIFEROL 5,000 UNIT TABLET PO SCH (09:35)
[2019-02-18] MEDS: CALCIUM (CARBONATE)/VITAMIN D 500 MG-200 UNIT TABLET PO SCH ×2 (09:35→21:42)
[2019-02-18] MEDS: ASPIRIN EC 81 MG TABLET PO SCH (12:29)
[2019-02-18] MEDS ORDERED: HEPARIN 5,000 UNIT/1 ML VIAL IV PRN (13:40)
[2019-02-18] MEDS: HEPARIN DRIP 25,000 UNITS/500 ML PREMIX IV SCH (16:02)
[2019-02-18] MEDS: WARFARIN 7.5 MG TABLET PO SCH (17:57)
[2019-02-18] MEDS ORDERED: WARFARIN 2.5 MG TABLET PO ONE (18:00)
[2019-02-19 02:54] LABS: Basophils # 0.2 10*3/uL (0.0-0.2); Eosinophils # 0.3 10*3/uL (0.0-0.87); Eosinophils % 3.4 % (0.00-10.9); Hematocrit 25.2 VOL% (35.7-47.0); Hemoglobin 7.4 GM/DL (12.0-16.0); Immature Granulocytes % 1.6 %; Immature Granulocytes Absolute 0.15 #; Lymphocytes # 2.1 10*3/uL (1.4-4.0); Lymphocytes % 22.4 % (21.3-54.2); Mean Corpuscular HGB Conc 29.4 GM/DL (32-36); Mean Corpuscular Volume 83.7 FL (87-102); Monocytes % 10.8 % (1.7-12.7); Neutrophils % 59.8 % (38.7-73.9); Platelet Count 440 T/CUMM (130-400); Red Blood Count 3.01 MC/CUMM (3.8-5.5); Red Cell Distribution Width 15.4 % (9.3-17.3); White Blood Count 9.3 T/CUMM (4-12)
[2019-02-19 03:06] LABS: INR 2.3; PT Patient Result 24.9 SECS (9.6-12.2)
[2019-02-19] MEDS: HEPARIN DRIP 25,000 UNITS/500 ML PREMIX IV SCH ×2 (03:30→16:04)
[2019-02-19] MEDS: METOPROLOL SUCCINATE XL 50 MG TABLET PO SCH (08:18)
[2019-02-19] MEDS: CALCIUM (CARBONATE)/VITAMIN D 500 MG-200 UNIT TABLET PO SCH ×2 (08:19→21:00)
[2019-02-19] MEDS: ASPIRIN EC 81 MG TABLET PO SCH (08:20)
[2019-02-19] MEDS: CHOLECALCIFEROL 5,000 UNIT TABLET PO SCH (08:20)
[2019-02-19] MEDS ORDERED: SODIUM CHLORIDE 0.9% 1,000 ML IV PRN (10:16)
[2019-02-19] MEDS: WARFARIN 7.5 MG TABLET PO SCH (17:25)
[2019-02-20] MEDS: HEPARIN DRIP 25,000 UNITS/500 ML PREMIX IV SCH (05:33)
[2019-02-20 05:42] LABS: Basophils # 0.1 10*3/uL (0.0-0.2); Basophils % 0.8 % (0.0-0.8); Eosinophils # 0.2 10*3/uL (0.0-0.87); Eosinophils % 1.4 % (0.00-10.9); Hemoglobin 9.7 GM/DL (12.0-16.0); Immature Granulocytes % 0.8 %; Immature Granulocytes Absolute 0.09 #; Mean Corpuscular HGB Conc 31.3 GM/DL (32-36); Mean Corpuscular Volume 83.3 FL (87-102); Mean Platelet Volume 11.5 FL (9.6-12.0); Monocytes % 12.3 % (1.7-12.7); Neutrophils % 67.7 % (38.7-73.9); Platelet Count 430 T/CUMM (130-400); Red Blood Count 3.72 MC/CUMM (3.8-5.5); Red Cell Distribution Width 15.3 % (9.3-17.3); White Blood Count 11.8 T/CUMM (4-12)
[2019-02-20 05:49] LABS: INR 2.7
[2019-02-20 06:01] LABS: Calcium 8.8 MG/DL (8.5-10.1)
[2019-02-20 06:03] LABS: PT Patient Result 29.2 SECS (9.6-12.2)
[2019-02-20] MEDS: SODIUM HYPOCHLORITE 0.25% IRRIG 473 ML BOTTLE TOP SCH ×2 (07:27→13:21)
[2019-02-20 08:04] VITALS: BP 103/52
[2019-02-20] MEDS: ASPIRIN EC 81 MG TABLET PO SCH (08:52)
[2019-02-20] MEDS: CALCIUM (CARBONATE)/VITAMIN D 500 MG-200 UNIT TABLET PO SCH (08:52)
[2019-02-20] MEDS: METOPROLOL SUCCINATE XL 50 MG TABLET PO SCH (08:53)
[2019-02-20] MEDS: CHOLECALCIFEROL 5,000 UNIT TABLET PO SCH (08:53)
== END 2019-02-20 14:11 | disposition home health service (06) | DRG 902 ==
LOC: N.5E 13:20
PROVIDERS: ADMIT Surgery; ATTEND Surgery

== ENCOUNTER 2020-12-05 20:58 | Inpatient (IN) ==
[2020-12-05] MEDS ORDERED: ONDANSETRON 4 MG/2 ML VIAL IV STA (21:22)
[2020-12-05] MEDS ORDERED: DILTIAZEM 50 MG/10 ML VIAL IV STA (21:22)
[2020-12-05] MEDS ORDERED: MORPHINE 2 MG/1 ML SYRINGE IV STA (21:22)
[2020-12-05] MEDS ORDERED: DILTIAZEM 100 MG VIAL.ADD IV ONE (21:24)
[2020-12-05] MEDS ORDERED: DILTIAZEM INJ 100 MG in SODIUM CHLORIDE 0.9% 100 ML IV SCH (21:30)
[2020-12-05 21:41] LABS: Basophils # 0.1 10*3/uL (0.0-0.2); Basophils % 1.3 % (0.0-0.8); Eosinophils # 0.1 10*3/uL (0.0-0.87); Eosinophils % 0.7 % (0.00-10.9); Hematocrit 42.1 VOL% (35.7-47.0); Hemoglobin 13.2 GM/DL (12.0-16.0); Immature Granulocytes % 0.7 %; Immature Granulocytes Absolute 0.07 #; Lymphocytes # 1.3 10*3/uL (1.4-4.0); Mean Corpuscular HGB Conc 31.4 GM/DL (32-36); Mean Corpuscular Volume 81.9 FL (87-102); Mean Platelet Volume 11.6 FL (9.6-12.0); Monocytes % 8.9 % (1.7-12.7); Neutrophils % 75.4 % (38.7-73.9); Platelet Count 338 T/CUMM (130-400); Red Blood Count 5.14 MC/CUMM (3.8-5.5); Red Cell Distribution Width 15.3 % (9.3-17.3); White Blood Count 9.9 T/CUMM (4-12)
[2020-12-05 21:48] LABS: PT Patient Result 40.7 SECS (10.5-12.0)
[2020-12-05 21:57] LABS: Bilirubin,Total 0.8 MG/DL (0.20-1.00); Calcium 9.2 MG/DL (8.5-10.1); Osmolality,Calculated 269.1 MOS/KG (273-304); Potassium 4.5 MMOL/L (3.5-5.1); Total Protein 7.1 G/DL (6.4-8.2)
[2020-12-05] MEDS ORDERED: FUROSEMIDE 40 MG/4 ML VIAL IV STA (22:06)
[2020-12-05] MEDS ORDERED: DEXTROSE 50% 25 GM/50 ML VIAL IV PRN (23:20)
[2020-12-05] MEDS ORDERED: MORPHINE 2 MG/1 ML SYRINGE IV PRN (23:20)
[2020-12-05] MEDS ORDERED: GLUCAGON 1 MG VIAL IM PRN (23:20)
[2020-12-05 23:37] LABS: Bilirubin,Urine Negative (Negative); Blood, Urine Small mg/dL (Negative); Glucose,Urine (UA) Negative (Negative); Ketones,Urine Negative (Negative); Mucus,Urine Occasional /LPF (Occasional); Nitrite,Urine Negative (Negative); Protein,Urine Negative; RBC,Urine 1 /HPF (0-4); Urine Appearance CLEAR (Clear); Urine Color Straw (Yellow); Urine Specific Gravity 1.005 (1.001-1.035); Urine Urobilinogen < 2.0 EU/DL (0.2-1.0)
[2020-12-06 02:45] LABS: Basophils # 0.1 10*3/uL (0.0-0.2); Basophils % 1.2 % (0.0-0.8); Eosinophils % 0.4 % (0.00-10.9); Hematocrit 39.6 VOL% (35.7-47.0); Hemoglobin 12.2 GM/DL (12.0-16.0); Immature Granulocytes % 0.6 %; Immature Granulocytes Absolute 0.06 #; Lymphocytes # 1.3 10*3/uL (1.4-4.0); Lymphocytes % 13.1 % (21.3-54.2); Mean Corpuscular HGB Conc 30.8 GM/DL (32-36); Mean Corpuscular Volume 83.4 FL (87-102); Mean Platelet Volume 11.8 FL (9.6-12.0); Monocytes % 11.6 % (1.7-12.7); Neutrophils % 73.1 % (38.7-73.9); Platelet Count 337 T/CUMM (130-400); Red Blood Count 4.75 MC/CUMM (3.8-5.5); Red Cell Distribution Width 15.4 % (9.3-17.3)
[2020-12-06 02:57] LABS: INR 4.7; PT Patient Result 46.6 SECS (10.5-12.0)
[2020-12-06 03:28] LABS: Calcium 8.7 MG/DL (8.5-10.1); Osmolality,Calculated 268.2 MOS/KG (273-304); Potassium 4.3 MMOL/L (3.5-5.1); Risk Ratio 2.42; Thyroid Stimulating Hormone 2.12 uIU/ml (0.358-3.74)
[2020-12-06] MEDS ORDERED: AMIODARONE INJ 150 MG in DEXTROSE 5% 100 ML IV ONE (07:29)
[2020-12-06] MEDS ORDERED: AMIODARONE INJ 450 MG in DEXTROSE 5% 241 ML IV SCH (07:30)
[2020-12-06] MEDS ORDERED: ALPRAZolam 0.25 MG TABLET PO ONE (07:40)
[2020-12-06] MEDS ORDERED: ASPIRIN EC 81 MG TABLET PO SCH (09:00)
[2020-12-06] MEDS: ASCORBIC ACID 500 MG TABLET PO SCH ×2 (09:30→20:34)
[2020-12-06] MEDS: CALCIUM (CARBONATE) 500 MG TABLET PO SCH ×2 (09:30→20:35)
[2020-12-06] MEDS: CHOLECALCIFEROL 1,000 UNIT TABLET PO SCH (09:30)
[2020-12-06] MEDS: LETROZOLE 2.5 MG TABLET PO SCH ×3 (09:30→20:34)
[2020-12-06] MEDS: PANTOPRAZOLE 40 MG TABLET PO SCH (09:30)
[2020-12-06] MEDS: FUROSEMIDE 40 MG/4 ML VIAL IV SCH (09:31)
[2020-12-06] MEDS: WARFARIN 7.5 MG TABLET PO SCH (10:07)
[2020-12-06] MEDS: ACETAMINOPHEN 325 MG TABLET PO PRN ×2 (14:00→20:35)
[2020-12-06] MEDS ORDERED: ONDANSETRON 4 MG/2 ML VIAL IV PRN (16:35)
[2020-12-06] MEDS: AMIODARONE INJ 450 MG in DEXTROSE 5% 241 ML IV SCH ×2 (16:44→20:31)
[2020-12-07] MEDS: AMIODARONE INJ 450 MG in DEXTROSE 5% 241 ML IV SCH ×3 (04:36→20:43)
[2020-12-07 06:07] LABS: Basophils # 0.1 10*3/uL (0.0-0.2); Basophils % 1.3 % (0.0-0.8); Eosinophils # 0.2 10*3/uL (0.0-0.87); Eosinophils % 2.2 % (0.00-10.9); Hematocrit 39.7 VOL% (35.7-47.0); Hemoglobin 12.3 GM/DL (12.0-16.0); Immature Granulocytes % 0.7 %; Immature Granulocytes Absolute 0.06 #; Lymphocytes # 1.3 10*3/uL (1.4-4.0); Lymphocytes % 15.3 % (21.3-54.2); Mean Corpuscular Volume 83.9 FL (87-102); Mean Platelet Volume 12.2 FL (9.6-12.0); Monocytes % 15.9 % (1.7-12.7); Neutrophils % 64.6 % (38.7-73.9); Platelet Count 300 T/CUMM (130-400); Red Blood Count 4.73 MC/CUMM (3.8-5.5); Red Cell Distribution Width 15.2 % (9.3-17.3); White Blood Count 8.7 T/CUMM (4-12)
[2020-12-07 06:23] LABS: Calcium 9.3 MG/DL (8.5-10.1); Osmolality,Calculated 268.2 MOS/KG (273-304); Potassium 3.9 MMOL/L (3.5-5.1)
[2020-12-07 06:35] LABS: Atypical Lymphocytes Few; Eosinophils 1 % (0-10); Lymphocytes 15 % (20-55); Segmented Neutrophils 76 % (50-85); Total Cells Counted 100
[2020-12-07 06:36] LABS: Hypochromasia 1+; Microcytosis 1+; Ovalocytes Slight
[2020-12-07 06:37] LABS: Giant Platelets Few
[2020-12-07] MEDS: PANTOPRAZOLE 40 MG TABLET PO SCH (09:20)
[2020-12-07] MEDS: CALCIUM (CARBONATE) 500 MG TABLET PO SCH ×2 (09:20→20:47)
[2020-12-07] MEDS: CHOLECALCIFEROL 1,000 UNIT TABLET PO SCH (09:21)
[2020-12-07] MEDS: ASCORBIC ACID 500 MG TABLET PO SCH ×2 (09:21→20:47)
[2020-12-07] MEDS: FUROSEMIDE 40 MG/4 ML VIAL IV SCH (09:21)
[2020-12-07 09:44] LABS: INR 3.7; PT Patient Result 37.9 SECS (10.5-12.0)
[2020-12-07] MEDS ORDERED: AMIODARONE INJ 150 MG in DEXTROSE 5% 100 ML IV ONE (10:08)
[2020-12-07] MEDS ORDERED: AMIODARONE INJ 450 MG in DEXTROSE 5% 241 ML IV SCH (10:30)
[2020-12-07] MEDS ORDERED: POTASSIUM CHLORIDE RIDER 10 MEQ/100 ML PREMIX IV PRN (12:53)
[2020-12-07] MEDS ORDERED: MAGNESIUM SULF RIDER 2 GM/50 ML PREMIX IV PRN (12:53)
[2020-12-07] MEDS: ALBUTEROL 0.63 MG/3 ML NEB RESP TX SCH (20:20)
[2020-12-07] MEDS: LETROZOLE 2.5 MG TABLET PO SCH (20:43)
[2020-12-07] MEDS: SPIRONOLACTONE 25 MG TABLET PO SCH (20:46)
[2020-12-08] MEDS: ALBUTEROL 0.63 MG/3 ML NEB RESP TX SCH ×4 (01:03→19:40)
[2020-12-08] MEDS: AMIODARONE INJ 450 MG in DEXTROSE 5% 241 ML IV SCH (01:17)
[2020-12-08 05:11] LABS: Basophils # 0.1 10*3/uL (0.0-0.2); Basophils % 1.1 % (0.0-0.8); Eosinophils # 0.2 10*3/uL (0.0-0.87); Eosinophils % 1.9 % (0.00-10.9); Hematocrit 37.7 VOL% (35.7-47.0); Hemoglobin 11.9 GM/DL (12.0-16.0); Immature Granulocytes % 0.7 %; Immature Granulocytes Absolute 0.07 #; Lymphocytes # 1.5 10*3/uL (1.4-4.0); Lymphocytes % 15.4 % (21.3-54.2); Mean Corpuscular HGB Conc 31.6 GM/DL (32-36); Mean Corpuscular Volume 82.3 FL (87-102); Mean Platelet Volume 12.3 FL (9.6-12.0); Monocytes % 14.6 % (1.7-12.7); Neutrophils % 66.3 % (38.7-73.9); Platelet Count 279 T/CUMM (130-400); Red Blood Count 4.58 MC/CUMM (3.8-5.5); White Blood Count 9.4 T/CUMM (4-12)
[2020-12-08 05:21] LABS: INR 3.2; PT Patient Result 32.8 SECS (10.5-12.0)
[2020-12-08 05:34] LABS: Calcium 8.7 MG/DL (8.5-10.1); Osmolality,Calculated 265.4 MOS/KG (273-304); Potassium 4.1 MMOL/L (3.5-5.1)
[2020-12-08] MEDS: FUROSEMIDE 40 MG/4 ML VIAL IV SCH (08:03)
[2020-12-08] MEDS: SPIRONOLACTONE 25 MG TABLET PO SCH ×2 (08:03→20:46)
[2020-12-08] MEDS: WARFARIN 7.5 MG TABLET PO SCH (08:03)
[2020-12-08] MEDS: ASCORBIC ACID 500 MG TABLET PO SCH ×2 (08:04→20:46)
[2020-12-08] MEDS: PANTOPRAZOLE 40 MG TABLET PO SCH (08:04)
[2020-12-08] MEDS: CALCIUM (CARBONATE) 500 MG TABLET PO SCH ×2 (08:04→20:46)
[2020-12-08] MEDS: CHOLECALCIFEROL 1,000 UNIT TABLET PO SCH (08:05)
[2020-12-08] MEDS ORDERED: propofoL 200 MG/20 ML VIAL IV ONE (11:21)
[2020-12-08] MEDS ORDERED: ETOMIDATE 40 MG/20 ML VIAL IV ONE (11:21)
[2020-12-08] MEDS: SODIUM CHLORIDE 0.9% 1,000 ML IV SCH (11:52)
[2020-12-08] MEDS ORDERED: diphenhydrAMINE CAP 25 MG CAPSULE PO ONE (12:30)
[2020-12-08] MEDS ORDERED: DIAZEPAM 5 MG TABLET PO ONE (12:30)
[2020-12-08] MEDS: AMIODARONE 200 MG TABLET PO SCH ×2 (13:45→20:47)
[2020-12-08] MEDS: POLYETHYLENE GLYCOL POWDER 17 GM PACK PO SCH (17:08)
[2020-12-08] MEDS: LETROZOLE 2.5 MG TABLET PO SCH (20:46)
[2020-12-09] MEDS: ALBUTEROL 0.63 MG/3 ML NEB RESP TX SCH ×2 (02:02→07:09)
[2020-12-09 05:55] LABS: Basophils # 0.1 10*3/uL (0.0-0.2); Basophils % 1.4 % (0.0-0.8); Eosinophils # 0.2 10*3/uL (0.0-0.87); Hematocrit 39.1 VOL% (35.7-47.0); Hemoglobin 12.1 GM/DL (12.0-16.0); Immature Granulocytes % 0.8 %; Immature Granulocytes Absolute 0.07 #; Lymphocytes # 1.5 10*3/uL (1.4-4.0); Lymphocytes % 17.8 % (21.3-54.2); Mean Corpuscular HGB Conc 30.9 GM/DL (32-36); Mean Corpuscular Volume 83.2 FL (87-102); Mean Platelet Volume 11.8 FL (9.6-12.0); Monocytes % 12.8 % (1.7-12.7); Neutrophils % 65.2 % (38.7-73.9); Platelet Count 327 T/CUMM (130-400); Red Cell Distribution Width 15.2 % (9.3-17.3); White Blood Count 8.4 T/CUMM (4-12)
[2020-12-09 06:13] LABS: Calcium 8.5 MG/DL (8.5-10.1); Osmolality,Calculated 259.8 MOS/KG (273-304); Potassium 3.7 MMOL/L (3.5-5.1)
[2020-12-09] MEDS ORDERED: FUROSEMIDE 40 MG TABLET PO SCH (09:00)
[2020-12-09] MEDS: SPIRONOLACTONE 25 MG TABLET PO SCH (09:31)
[2020-12-09] MEDS: WARFARIN 7.5 MG TABLET PO SCH (09:32)
[2020-12-09] MEDS: CALCIUM (CARBONATE) 500 MG TABLET PO SCH (09:32)
[2020-12-09] MEDS: PANTOPRAZOLE 40 MG TABLET PO SCH (09:32)
[2020-12-09] MEDS: CHOLECALCIFEROL 1,000 UNIT TABLET PO SCH (09:32)
[2020-12-09] MEDS: AMIODARONE 200 MG TABLET PO SCH (09:32)
[2020-12-09] MEDS: ASCORBIC ACID 500 MG TABLET PO SCH (09:32)
[2020-12-09] MEDS: POLYETHYLENE GLYCOL POWDER 17 GM PACK PO SCH (09:33)
[2020-12-09] MEDS: SODIUM CHLORIDE 0.9% 1,000 ML IV SCH (10:55)
[2020-12-09 11:35] VITALS: BP 116/66
[2020-12-12] MEDS ORDERED: WARFARIN 10 MG TABLET PO SCH (07:29)
[2020-12-16] MEDS ORDERED: AMIODARONE 200 MG TABLET PO SCH (09:00)
[2020-12-23] MEDS ORDERED: AMIODARONE 200 MG TABLET PO SCH (09:00)
== END 2020-12-09 13:10 | disposition home or self-care (01) | DRG 308 ==
LOC: N.ED 20:58 → N.EDINP 23:20 → N.TELES 12-06 00:02
PROVIDERS: ADMIT Internal Medicine; ATTEND Internal Medicine

== ENCOUNTER 2021-07-18 07:30 | Inpatient (IN) ==
[2021-07-18] MEDS ORDERED: ALUMINUM/MAGNES/SIMETH MAX STR 30 ML UDCUP PO PRN (09:43)
[2021-07-18] MEDS ORDERED: MORPHINE 2 MG/1 ML SYRINGE IV PRN (09:43)
[2021-07-18] MEDS ORDERED: CALCIUM CARBONATE CHEW 500 MG TABLET PO PRN (09:43)
[2021-07-18] MEDS ORDERED: ONDANSETRON 4 MG/2 ML VIAL IV PRN (09:43)
[2021-07-18] MEDS ORDERED: hydrALAZINE 20 MG/1 ML VIAL IV PRN (09:43)
[2021-07-18] MEDS ORDERED: LACTULOSE 20 GM/30 ML UDCUP PO PRN (09:43)
[2021-07-18] MEDS ORDERED: ZALEPLON 5 MG CAPSULE PO PRN (09:43)
[2021-07-18] MEDS ORDERED: ACETAMINOPHEN 325 MG TABLET PO PRN (09:43)
[2021-07-18] MEDS ORDERED: SIMETHICONE CHEW 125 MG TABLET PO PRN (09:43)
[2021-07-18] MEDS ORDERED: BISACODYL 5 MG TABLET PO PRN (09:43)
[2021-07-18 13:02] LABS: Basophils # 0.1 10*3/uL (0.0-0.2); Basophils % 1.7 % (0.0-0.8); Eosinophils # 0.1 10*3/uL (0.0-0.87); Eosinophils % 1.3 % (0.00-10.9); Hematocrit 44.6 VOL% (35.7-47.0); Hemoglobin 14.1 GM/DL (12.0-16.0); Immature Granulocytes % 1.8 %; Immature Granulocytes Absolute 0.15 #; Lymphocytes # 1.2 10*3/uL (1.4-4.0); Lymphocytes % 14.7 % (21.3-54.2); Mean Corpuscular HGB Conc 31.6 GM/DL (32-36); Mean Corpuscular Volume 83.8 FL (87-102); Mean Platelet Volume 10.9 FL (9.6-12.0); Monocytes # 1.1 10*3/uL (0.11-0.8); Monocytes % 13.1 % (1.7-12.7); Neutrophils % 67.4 % (38.7-73.9); Platelet Count 330 T/CUMM (130-400); Red Blood Count 5.32 MC/CUMM (3.8-5.5); Red Cell Distribution Width 15.9 % (9.3-17.3); White Blood Count 8.2 T/CUMM (4-12)
[2021-07-18 13:20] LABS: INR 1.7; PT Patient Result 18.4 SECS (10.5-12.0)
[2021-07-18 13:21] LABS: Albumin 4.3 G/DL (3.4-5.0); Bilirubin,Total 0.8 MG/DL (0.20-1.00); Calcium 10.3 MG/DL (8.5-10.1); Osmolality,Calculated 252.2 MOS/KG (273-304); Potassium 4.9 MMOL/L (3.5-5.1); Total Protein 8.2 G/DL (6.4-8.2)
[2021-07-18] MEDS ORDERED: FUROSEMIDE 20 MG/2 ML VIAL IV ONE (13:30)
[2021-07-18] MEDS: CALCIUM (CARBONATE) 500 MG TABLET PO SCH (17:06)
[2021-07-18] MEDS: DIGOXIN 0.125 MG TABLET PO SCH (17:20)
[2021-07-18] MEDS: HEPARIN DRIP 25,000 UNITS/500 ML PREMIX IV SCH (17:44)
[2021-07-18] MEDS: ASCORBIC ACID 500 MG TABLET PO SCH (20:09)
[2021-07-18] MEDS ORDERED: VALSARTAN 80 MG TABLET PO SCH (21:00)
[2021-07-19 01:32] LABS: Basophils # 0.1 10*3/uL (0.0-0.2); Basophils % 1.4 % (0.0-0.8); Eosinophils # 0.2 10*3/uL (0.0-0.87); Eosinophils % 2.2 % (0.00-10.9); Hematocrit 38.8 VOL% (35.7-47.0); Hemoglobin 12.8 GM/DL (12.0-16.0); Immature Granulocytes % 1.6 %; Immature Granulocytes Absolute 0.13 #; Lymphocytes # 1.6 10*3/uL (1.4-4.0); Lymphocytes % 19.2 % (21.3-54.2); Mean Corpuscular Volume 80.8 FL (87-102); Mean Platelet Volume 10.5 FL (9.6-12.0); Monocytes # 1.1 10*3/uL (0.11-0.8); Neutrophils % 62.6 % (38.7-73.9); Platelet Count 262 T/CUMM (130-400); Red Cell Distribution Width 15.8 % (9.3-17.3); White Blood Count 8.3 T/CUMM (4-12)
[2021-07-19 01:49] LABS: Calcium 9.6 MG/DL (8.5-10.1); Osmolality,Calculated 251.4 MOS/KG (273-304); Potassium 3.8 MMOL/L (3.5-5.1)
[2021-07-19 05:23] LABS: INR 1.6; PT Patient Result 17.2 SECS (10.5-12.0)
[2021-07-19] MEDS ORDERED: DEXMEDETOMIDINE 200 MCG/2 ML VIAL ONE (06:45)
[2021-07-19] MEDS ORDERED: VASOPRESSIN 20 UNITS/ML VIAL ONE (06:46)
[2021-07-19] MEDS ORDERED: HEPARIN/NACL 0.9% 2 UNITS/ML 1,000 UNIT/500 ML BAG IV ONE (06:59)
[2021-07-19] MEDS ORDERED: LIDOCAINE 1%/EPI INJ 20 ML VIAL ONE (06:59)
[2021-07-19] MEDS ORDERED: ceFAZolin 1,000 MG VIAL ONE ×2 (06:59)
[2021-07-19] MEDS ORDERED: ceFAZolin 1,000 MG VIAL IRRIG ONE (07:00)
[2021-07-19] MEDS ORDERED: NON-FORMULARY MEDICATION (Denosumab [Prolia] 60 mg/mL Syringe) SUBCUT SCH (08:30)
[2021-07-19] MEDS ORDERED: ACETAMINOPHEN/CODEINE 300-30 MG TABLET PO PRN (08:38)
[2021-07-19] MEDS ORDERED: MIDAZOLAM 2 MG/2 ML VIAL ONE (08:41)
[2021-07-19] MEDS ORDERED: DEXAMETHASONE 4 MG/1 ML VIAL ONE (08:41)
[2021-07-19] MEDS ORDERED: fentaNYL 100 MCG/2 ML VIAL ONE (08:41)
[2021-07-19] MEDS ORDERED: ETOMIDATE 40 MG/20 ML VIAL IV ONE (08:41)
[2021-07-19] MEDS ORDERED: ONDANSETRON 4 MG/2 ML VIAL ONE (08:41)
[2021-07-19] MEDS ORDERED: KETAMINE 500 MG/10 ML VIAL ONE (08:41)
[2021-07-19] MEDS ORDERED: SODIUM CHLORIDE 0.9% 1,000 ML IV SCH (09:00)
[2021-07-19] MEDS ORDERED: NON-FORMULARY MEDICATION (Ascorbic Acid (Vitamin C) [Vitamin C] 1,000 mg Tablet Extended R PO SCH (09:00)
[2021-07-19] MEDS: CALCIUM (CARBONATE) 500 MG TABLET PO SCH (15:40)
[2021-07-19] MEDS: ASPIRIN EC 81 MG TABLET PO SCH (15:41)
[2021-07-19] MEDS: SPIRONOLACTONE 25 MG TABLET PO SCH (15:41)
[2021-07-19] MEDS: PANTOPRAZOLE 40 MG TABLET PO SCH (15:42)
[2021-07-19] MEDS: METOPROLOL SUCCINATE XL 50 MG TABLET PO SCH (15:42)
[2021-07-19] MEDS: ASCORBIC ACID 500 MG TABLET PO SCH ×2 (15:42→20:54)
[2021-07-19] MEDS: DIGOXIN 0.125 MG TABLET PO SCH (15:51)
[2021-07-19] MEDS: WARFARIN 7.5 MG TABLET PO SCH (17:59)
[2021-07-19] MEDS: LETROZOLE 2.5 MG TABLET PO SCH (19:16)
[2021-07-19] MEDS: VALSARTAN 80 MG TABLET PO SCH (20:54)
[2021-07-19] MEDS: HEPARIN DRIP 25,000 UNITS/500 ML PREMIX IV SCH (23:50)
[2021-07-20 01:33] LABS: Basophils % 0.2 % (0.0-0.8); Hematocrit 38.3 VOL% (35.7-47.0); Hemoglobin 12.7 GM/DL (12.0-16.0); Immature Granulocytes % 1.3 %; Immature Granulocytes Absolute 0.21 #; Lymphocytes # 0.7 10*3/uL (1.4-4.0); Lymphocytes % 4.1 % (21.3-54.2); Mean Corpuscular HGB Conc 33.2 GM/DL (32-36); Mean Corpuscular Volume 81.3 FL (87-102); Mean Platelet Volume 10.7 FL (9.6-12.0); Monocytes # 1.4 10*3/uL (0.11-0.8); Monocytes % 8.5 % (1.7-12.7); Neutrophils % 85.9 % (38.7-73.9); Platelet Count 268 T/CUMM (130-400); Red Blood Count 4.71 MC/CUMM (3.8-5.5); Red Cell Distribution Width 15.7 % (9.3-17.3); White Blood Count 16.4 T/CUMM (4-12)
[2021-07-20 01:49] LABS: Calcium 9.2 MG/DL (8.5-10.1); Osmolality,Calculated 250.6 MOS/KG (273-304); Potassium 4.2 MMOL/L (3.5-5.1)
[2021-07-20 02:10] LABS: Lymphocytes 3 % (20-55); Platelet Estimate Adequate; Total Cells Counted 100
[2021-07-20 03:35] LABS: INR 1.5; PT Patient Result 15.9 SECS (10.5-12.0)
[2021-07-20] MEDS: CALCIUM (CARBONATE) 500 MG TABLET PO SCH ×4 (07:26→17:36)
[2021-07-20] MEDS: PANTOPRAZOLE 40 MG TABLET PO SCH (10:36)
[2021-07-20] MEDS: METOPROLOL SUCCINATE XL 50 MG TABLET PO SCH (10:36)
[2021-07-20] MEDS: ASCORBIC ACID 500 MG TABLET PO SCH ×2 (10:36→20:41)
[2021-07-20] MEDS: SPIRONOLACTONE 25 MG TABLET PO SCH (10:37)
[2021-07-20] MEDS: ASPIRIN EC 81 MG TABLET PO SCH (10:37)
[2021-07-20] MEDS: LETROZOLE 2.5 MG TABLET PO SCH ×2 (10:40→20:40)
[2021-07-20] MEDS: HEPARIN DRIP 25,000 UNITS/500 ML PREMIX IV SCH (10:56)
[2021-07-20] MEDS: DIGOXIN 0.125 MG TABLET PO SCH (13:30)
[2021-07-20 17:08] LABS: INR 1.7; PT Patient Result 17.6 SECS (10.5-12.0)
[2021-07-20] MEDS: WARFARIN 7.5 MG TABLET PO SCH (17:37)
[2021-07-20] MEDS: VALSARTAN 80 MG TABLET PO SCH (20:40)
[2021-07-21 05:39] LABS: Basophils # 0.1 10*3/uL (0.0-0.2); Basophils % 0.6 % (0.0-0.8); Eosinophils # 0.1 10*3/uL (0.0-0.87); Eosinophils % 0.6 % (0.00-10.9); Hematocrit 38.2 VOL% (35.7-47.0); Hemoglobin 12.6 GM/DL (12.0-16.0); Immature Granulocytes % 1.7 %; Lymphocytes # 1.3 10*3/uL (1.4-4.0); Lymphocytes % 11.5 % (21.3-54.2); Mean Corpuscular Volume 82.2 FL (87-102); Mean Platelet Volume 11.3 FL (9.6-12.0); Monocytes # 1.2 10*3/uL (0.11-0.8); Monocytes % 10.8 % (1.7-12.7); Neutrophils % 74.8 % (38.7-73.9); Platelet Count 259 T/CUMM (130-400); Red Blood Count 4.65 MC/CUMM (3.8-5.5); Red Cell Distribution Width 16.1 % (9.3-17.3); White Blood Count 11.4 T/CUMM (4-12)
[2021-07-21 05:46] LABS: PT Patient Result 20.9 SECS (10.5-12.0)
[2021-07-21 06:01] LABS: Calcium 9.3 MG/DL (8.5-10.1); Osmolality,Calculated 258.9 MOS/KG (273-304); Potassium 4.1 MMOL/L (3.5-5.1)
[2021-07-21] MEDS: CALCIUM (CARBONATE) 500 MG TABLET PO SCH ×2 (09:24→17:49)
[2021-07-21] MEDS: SPIRONOLACTONE 25 MG TABLET PO SCH (09:24)
[2021-07-21] MEDS: ASPIRIN EC 81 MG TABLET PO SCH (09:25)
[2021-07-21] MEDS: ASCORBIC ACID 500 MG TABLET PO SCH ×2 (09:25→20:43)
[2021-07-21] MEDS: METOPROLOL SUCCINATE XL 50 MG TABLET PO SCH (09:25)
[2021-07-21] MEDS: PANTOPRAZOLE 40 MG TABLET PO SCH (09:25)
[2021-07-21] MEDS: AMOXICILLIN 500 MG CAPSULE PO SCH ×2 (11:25→20:42)
[2021-07-21] MEDS: HEPARIN DRIP 25,000 UNITS/500 ML PREMIX IV SCH (11:26)
[2021-07-21] MEDS: DIGOXIN 0.125 MG TABLET PO SCH (13:00)
[2021-07-21] MEDS: WARFARIN 7.5 MG TABLET PO SCH (17:49)
[2021-07-21] MEDS: LETROZOLE 2.5 MG TABLET PO SCH (20:43)
[2021-07-21] MEDS: VALSARTAN 80 MG TABLET PO SCH (20:43)
[2021-07-22 05:37] LABS: Basophils # 0.1 10*3/uL (0.0-0.2); Basophils % 0.7 % (0.0-0.8); Eosinophils # 0.1 10*3/uL (0.0-0.87); Eosinophils % 0.7 % (0.00-10.9); Hemoglobin 12.2 GM/DL (12.0-16.0); Immature Granulocytes % 1.7 %; Immature Granulocytes Absolute 0.23 #; Lymphocytes # 1.3 10*3/uL (1.4-4.0); Lymphocytes % 9.8 % (21.3-54.2); Mean Corpuscular Volume 81.7 FL (87-102); Mean Platelet Volume 10.6 FL (9.6-12.0); Monocytes # 1.5 10*3/uL (0.11-0.8); Monocytes % 10.9 % (1.7-12.7); Neutrophils % 76.2 % (38.7-73.9); Platelet Count 248 T/CUMM (130-400); Red Blood Count 4.53 MC/CUMM (3.8-5.5); White Blood Count 13.6 T/CUMM (4-12)
[2021-07-22 05:44] LABS: INR 2.6; PT Patient Result 26.6 SECS (10.5-12.0)
[2021-07-22 05:50] LABS: Calcium 9.5 MG/DL (8.5-10.1); Osmolality,Calculated 251.5 MOS/KG (273-304); Potassium 4.2 MMOL/L (3.5-5.1)
[2021-07-22] MEDS: SPIRONOLACTONE 25 MG TABLET PO SCH (08:56)
[2021-07-22] MEDS: PANTOPRAZOLE 40 MG TABLET PO SCH (08:56)
[2021-07-22] MEDS: ASCORBIC ACID 500 MG TABLET PO SCH (08:56)
[2021-07-22] MEDS: AMOXICILLIN 500 MG CAPSULE PO SCH (08:56)
[2021-07-22] MEDS: CALCIUM (CARBONATE) 500 MG TABLET PO SCH (08:56)
[2021-07-22] MEDS: ASPIRIN EC 81 MG TABLET PO SCH (08:56)
[2021-07-22] MEDS: METOPROLOL SUCCINATE XL 50 MG TABLET PO SCH (08:56)
[2021-07-22] MEDS: HEPARIN DRIP 25,000 UNITS/500 ML PREMIX IV SCH (08:57)
[2021-07-22 10:48] VITALS: BP 122/75
[2021-07-24] MEDS ORDERED: WARFARIN 5 MG TABLET PO SCH (18:00)
== END 2021-07-22 12:50 | disposition home or self-care (01) | DRG 227 ==
LOC: N.TELES → OBSVTOIN 12:29 → EDSTATUS 07-19 07:30
PROVIDERS: ADMIT Internal Medicine Interventional Cardiology; ATTEND Internal Medicine Interventional Cardiology
PROC: CLDCICD (2021-07-19 07:15)